=== PATIENT | female | born 1940 | race Caucasian/White ===

== ENCOUNTER 2017-07-15 14:46 | Inpatient (IN) | payer MEDICARE, OTHER ==
[~2017-07-15] VITALS: Ht 162.6 cm; Wt 55.3 kg
[2017-07-15 15:50] LABS: BASOPHIL # 0.1 10^3/ul (0.0-0.1); BASOPHILS % 0.5 % (0.0-2.0); EOSINOPHILS # 0.4 10^3/ul (0.0-0.5); EOSINOPHILS % 3.9 % (0.0-7.0); HEMATOCRIT 25.3 % (37.0-47.0); HEMOGLOBIN 8.2 g/dl (12.0-16.0); LYMPHOCYTES # 1.5 10^3/ul (0.8-2.9); LYMPHOCYTES % 16.1 % (15.0-51.0); MEAN CORPUSCULAR HEMOGLOBIN 30.8 pg (29.0-33.0); MEAN CORPUSCULAR HGB CONC 32.4 g/dl (32.0-37.0); MEAN CORPUSCULAR VOLUME 95.1 fl (82.0-101.0); MEAN PLATELET VOLUME 9.1 fl (7.4-10.4); MONOCYTE # 0.7 10^3/ul (0.3-0.9); MONOCYTES % 7.1 % (0.0-11.0); NEUTROPHILS % 71.7 % (39.0-77.0); PLATELET COUNT 524 10^3/UL (140-415); RED BLOOD COUNT 2.66 10^6/ul (4.20-5.40); RED CELL DISTRIBUTION WIDTH 18.1 % (11.5-14.5); WHITE BLOOD COUNT 9.2 10^3/ul (4.8-10.8)
[2017-07-15 16:12] LABS: CREATININE 0.58 mg/dl (0.44-1.00); POTASSIUM 5.1 mmol/L (3.5-5.1)
--- NOTE | 2017-07-15 16:25 | RADRPT ---
PROCEDURE: Chest xray. CLINICAL INDICATION: Decreased breath sounds on the left. TECHNIQUE: Upright PA and lateral views of the chest were obtained. COMPARISON: None. FINDINGS: There is a moderate left pleural effusion with associated left lower lung zone airspace disease. The right lung is clear. Pulmonary vascularity is within normal limits. The cardiac silhouette is parti ally obscured by the left pleural effusion/air space disease but appears grossly unremarkable. No pn eumothorax is identified. There are atherosclerotic calcifications in the aorta. There are degenerat cathy changes in the spine and shoulders. The soft tissues are unremarkable. IMPRESSION: Moderate left pleural effusion with left lower lung zone airspace disease. RPTAT:PP .Patty Goode MD, MD Date Time Electronically viewed and signed by .Patty Goode MD, MD on 07/15/2017 16:25 .K/
--- NOTE | 2017-07-15 17:22 | ERA ---
ER Documentation Chief Complaint Date/Time DATE: 07/15/17 TIME: 17:13 Chief Complaint BROUGHT IN VIA PRIVATE AMBULANCE DUE TO LOW HEMOGLOBIN HPI This is a 77-year-old female with a past medical history of chronic anemia, asthma, recurrent UTI infections, a recent episode of pneumonia for which she required a prolonged hospitalization, left-sided pleural effusion that was drained during this recent admission, failure to thrive, deconditioning, malnutrition, requiring a rehab facility after discharge, concerns of endometrial carcinoma or possibly cervical cancer on a recent CT, previous left hip surgery, diverticulosis, bladder outlet obstruction, who is presenting with continued fatigue and lethargy. She had blood work drawn this morning and reportedly had a hemoglobin that was between 7 and 8. She was sent to the emergency department with concerns of worsening anemia. The patient was told that she was going to come to the emergency department, she actually perked up. At this time, the patient's daughter says that she seems to be at her baseline. The patient has no complaints. She does not feel sick. She denies any fever or chills. She has no nausea. She does not feel any more fatigued than is typical for her. She denies chest pain or trouble breathing. She denies abdominal pain. The patient does endorse intermittent episodes of diarrhea. According to a recent nursing report, there may have been blood in her stool recently as well. The patient denies any acute focal deficits. She denies any weakness or numbness or tingling to the face or extremities. ROS All systems reviewed and are negative except as per history of present illness. Medications Home Meds No Active Prescriptions or Reported Meds Allergies Allergies: Coded Allergies: No Known Allergy (Verified , 07/15/17) PMhx/Soc History of Surgery: Yes (ORIF L HIP) Anesthesia Reaction: No Hx Neurological Disorder: Yes (LEFT SIDE WEAKNESS DUE TO SX) Hx Respiratory Disorders: Yes (ASTHMA) Hx Psychiatric Problems: No Hx Miscellaneous Medical Probl: Yes (ANEMIA, ASTHMA) Hx Alcohol Use: No Hx Substance Use: No Hx Tobacco Use: No Smoking Status: Never smoker Physical Exam Vitals Vital Signs Date Time Temp Pulse Resp B/P Pulse Ox O2 Delivery O2 Flow Rate FiO2 07/15/17 20:32 97.9 91 20 105/51 98 Nasal Cannula 3.0 07/15/17 18:12 98.6 87 20 109/56 100 Room Air 3.0 Nasal Cannula 07/15/17 17:25 92 20 122/68 100 Room Air 3.0 Nasal Cannula 07/15/17 14:48 98.5 86 18 107/57 100 Physical Exam Const: NAD, Well developed, Cachectic Head: Atraumatic Eyes: Normal Conjunctiva ENT: Normal External Ears, Nose. Dry mucous membranes Neck: Full range of motion. ~ No meningismus. Resp: decreased breath sounds on the left Cardio: Regular rate and rhythm, no murmurs Abd: Soft, non tender, non distended. Normal bowel sounds. G tube in place, no signs of infection, erythema, no edema, no induration, no purulence Skin: No petechiae or rashes Back: No midline or flank tenderness Ext: No cyanosis, or edema Neur: Awake and alert, normal strength, normal sensation, CN intact Psych: Normal Mood and Affect Result Diagram: 07/15/17 1530 07/15/17 1530 Results 24 hrs Laboratory Tests Test 07/15/17 15:30 07/15/17 16:50 White Blood Count 9.210^3/ul Red Blood Count 2.6610^6/ul Hemoglobin 8.2g/dl Hematocrit 25.3% Mean Corpuscular Volume 95.1fl Mean Corpuscular Hemoglobin 30.8pg Mean Corpuscular Hemoglobin Concent 32.4g/dl Red Cell Distribution Width 18.1% Platelet Count 53158^3/UL Mean Platelet Volume 9.1fl Neutrophils % 71.7% Lymphocytes % 16.1% Monocytes % 7.1% Eosinophils % 3.9% Basophils % 0.5% Nucleated Red Blood Cells % 0.0/100WBC Neutrophils # (Manual) 6.610^3/ul Lymphocytes # 1.510^3/ul Monocytes # 0.710^3/ul Eosinophils # 0.410^3/ul Basophils # 0.110^3/ul Nucleated Red Blood Cells # 0.010^3/ul Sodium Level 126mmol/L Potassium Level 5.1mmol/L Chloride Level 96mmol/L Carbon Dioxide Level 28mmol/L Anion Gap 7 Blood Urea Nitrogen 22mg/dl Creatinine 0.58mg/dl Glucose Level 89mg/dl Calcium Level 8.0mg/dl Stool Occult Blood NEGATIVE Current Medications Medications (Trade) Dose Ordered Sig/Walt Route PRN Reason Start Time Stop Time Status Last Admin Dose Admin Ondansetron HCl (Zofran Inj) 4 mg BRIDGE ORDER PRN IV NAUSEA AND/OR VOMITING 07/15/17 17:30 07/16/17 17:29 Acetaminophen 650 mg 650 mg ER BRIDGE PRN PO MILD PAIN/FEVER 07/15/17 17:30 07/16/17 17:29 Sodium Chloride (NS) 250 ml @ 0 mls/hr Q0M ONCE IV 07/15/17 17:25 07/15/17 17:27 DC 07/15/17 17:25 IV Flush (NS 3 ml) 3 ml PER PROTOCOL IV 07/15/17 21:30 UNV Ondansetron HCl (Zofran Inj) 4 mg Q6H PRN IV NAUSEA AND/OR VOMITING 07/15/17 21:30 UNV Acetaminophen (Tylenol Tab) 650 mg Q6H PRN PO PAIN LEVEL 1-3 OR FEVER 07/15/17 21:30 UNV Pantoprazole (Protonix Tab) 40 mg DAILY@06 PO 07/16/17 06:00 UNV Amiodarone HCl (Cordarone) 200 mg BID PO 07/16/17 09:00 UNV Apixaban (Eliquis) 5 mg BID ONCE PO 07/16/17 09:00 07/16/17 09:01 UNV Metoprolol Tartrate (Lopressor) 12.5 mg ONCE ONCE PO 07/15/17 21:30 07/15/17 21:31 UNV Multivitamins (Multivitamin) 30 ml DAILY GTB 07/16/17 09:00 UNV Pantoprazole (Protonix Tab) 40 mg DAILY ONCE PO 07/16/17 09:00 07/16/17 09:01 UNV Mirtazapine (Remeron) 15 mg QHS PO 07/16/17 21:00 UNV Ascorbic Acid (Vitamin C) 500 mg DAILY PO 07/16/17 09:00 UNV Procedures/MDM The patient's presenting with concerns of fatigue and anemia. The patient has had issues with failure to thrive in the past. She has been found to have a risk of cancer, which could be contributing to her symptoms. There is also a reported concern of a GI bleed. These will be assessed further. Patient's blood work was obtained and reviewed. The patient is anemic, but her hemoglobin is 8.2. Is not between 7 and 8 as previously described. The patient has no leukocytosis or left shift. I do not suspect a systemic infection. The patient's BMP demonstrates hyponatremia, which is frequent for her. She also has an elevated BUN, which is likely associated with dehydration. EKG Read by me Rate/Rhythm: Regular rate at 93 bpm, regular rhythm Intervals: Prolonged NE interval indicating a first-degree AV block. QRS duration and QTc are unremarkable [place]: Normal Nonspecific repolarization changes but no ST or T-wave changes concerning for acute coronary syndrome Impression: No evidence of acute ischemia or arrhythmia CXR FINDINGS: There is a moderate left pleural effusion with associated left lower lung zone airspace disease. The right lung is clear. Pulmonary vascularity is within normal limits. The cardiac silhouette is partially obscured by the left pleural effusion/air space disease but appears grossly unremarkable. No pneumothorax is identified. There are atherosclerotic calcifications in the aorta. There are degenerative changes in the spine and shoulders. The soft tissues are unremarkable. IMPRESSION: Moderate left pleural effusion with left lower lung zone airspace disease. Electronically viewed and signed by .Patty Goode MD, MD on 07/15/2017 16: 25 Rectal exam was completed that demonstrated yellow diarrhea but no junior blood. The occult test came back negative for bleeding. The patient's primary care physician was called to discuss the case. He was concerned about sending the patient back as her hemoglobin is perpetually read as between 7 and 8 at the facility. The patient's physician requested admission under his care and requested that 1 unit be given to the patient. The patient was consented for blood. She understands the risks and benefits. The patient was admitted to Dr. Guzman on a medical/surgical floor. The patient may require repeat thoracentesis given her recurrent left-sided pleural effusion. Departure Diagnosis: Primary Impression: Failure to thrive Qualified Code: R62.7 - Failure to thrive in adult Additional Impressions: Anemia Qualified Code: D64.9 - Anemia, unspecified type Recurrent left pleural effusion Hyponatremia Condition: CAROLYN mSith MD Jul 15, 2017 17:22
[2017-07-15] MEDS ORDERED: SOD CHLORIDE 0.9% 250 ML IV ONE (17:25)
[2017-07-15] MEDS ORDERED: ONDANSETRON 4 MG INJ IV PRN ×2 (17:30→21:30)
[2017-07-15] MEDS ORDERED: ACETAMINOPHEN 325 MG TAB PO PRN ×2 (17:30→21:30)
[2017-07-15 20:32] VITALS: PULSE 91; TEMP 97.9
[2017-07-15] MEDS ORDERED: NACL 0.9% 3 ML SYG IV SCH (21:30)
[2017-07-15] MEDS ORDERED: METOPROLOL 25 MG TAB PO ONE (21:30)
[2017-07-15 21:45] VITALS: BP 101/54; RESP 18
[2017-07-15 22:00] VITALS: Ht 162.6 cm; Wt 55.3 kg
--- NOTE | 2017-07-15 23:30 | HP ---
DATE OF ADMISSION: 07/15/2017 REASON FOR ADMISSION: Symptomatic anemia, encephalopathy. HISTORY OF PRESENT ILLNESS: Patient is a 77-year-old, very sick female with history of recent weight loss, cachexia, malnutrition, dysphoria, pelvic mass around the uterus and bladder, anemia, recently admitted at [facility] secondary to sepsis, was found to have urinary tract infection, pneumonia, left pleural effusion, status post thoracentesis, status post EGD and G-tube placement secondary to severe protein malnutrition. Patient was transferred to the residential facility at [facility] for further care. Patient is FULL CODE. Patient refused some workup at [facility], which included a colonoscopy. Patient was in usual state of health up until today, when she was noted to be more encephalopathic and weak. Labs revealed hemoglobin of 7.6. We did start her already on Epogen, but because of her change in mentation, it was decided to send her to [facility]. In the ER, patient's hemoglobin already improved to 8.2, but we decided to admit the patient for further care for a blood transfusion. Also, she was positive for fecal occult blood on 07/14/2017 and has continued with possible GI bleed. It was decided to admit the patient for further care. In the ER, patient evaluated. Chest x-ray revealed left pleural effusion, moderate, in moderate amount, and she received 1 unit of PRBC. Patient admitted to the floor. Patient otherwise has no specific complaints. Overall, very weak and debilitated, bedridden and has not walked for now a couple of months. SOCIAL HISTORY: Tobacco: None. Social alcohol in the past. IV drug abuse: None. 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 SURGICAL HISTORY: Includes appendectomy, left hip surgery, G- tube placement. ALLERGIES: NO KNOWN DRUG ALLERGIES. FAMILY HISTORY: Mother at age 86 from complications of hip surgery. Father from liver disease. He was alcoholic. within the patient. PAST MEDICAL HISTORY: Also includes diabetes mellitus, AFib, diabetes mellitus, controlled. PHYSICAL EXAMINATION: VITAL SIGNS: Pulse 91, respirations 20, blood pressure 105/51, temperature 98.3. GENERAL: Patient is in no acute distress. She is frail, cachectic, temporal wasting, pale, decreased dentition. CARDIOVASCULAR: S1, S2. LUNGS: Decrease at the left. ABDOMEN: Soft. G-tube in place. EXTREMITIES: Trace edema, lower extremities. Patient moving all extremities, but overall very weak. LABORATORY: White count is 9.2, hemoglobin 8.2, hematocrit 25, platelet count 524, neutrophils 72 percent, lymphocytes 16 percent. Chemistry: Sodium is low, 126, potassium 5.1, chloride 96, bicarb 28, BUN 22, creatinine 0.58, glucose of 89. Stool occult blood here is negative. Chest x-ray shows moderate left pleural effusion, with left lower lung zone airspace disease. Patient's EKG shows sinus rhythm with first-degree AV block, nonspecific ST abnormalities. ASSESSMENT AND PLAN: This is an unfortunate 77-year-old, female with history of cachexia, malnutrition, left pleural effusion, anemia, asthma, and pelvic mass, presented with progressive decline, is status post treatment for sepsis, including urinary tract infection and pneumonia, now presented with worsening anemia and possible gastrointestinal bleed. 1. Respiratory. Noted left pleural effusion. May benefit from another thoracentesis. Will discuss with family the benefits versus risks. If patient is not very symptomatic, we will hold on any further procedures. O2 supplements and breathing treatment will be provided. 2. Cardiovascular. Patient with recent atrial fibrillation, now back to sinus. Has been on amiodarone and low-dose beta clyde as blood pressure can tolerate. Continue Eliquis. If there is active bleeding will hold blood thinners. 3. Anemia, status post prolonged hospitalization, likely partly anemia of chronic disease and possibly gastrointestinal bleed. Patient will be transfused 1 unit of packed red blood cells. Follow up hemoglobin and hematocrit. 4. Malnutrition. Continue G-tube feeding. Will keep her n.p.o. by mouth, as patient is high risk of aspiration. 5. Renal. Monitor electrolytes. 6. Pelvic mass. When more stable, we can pursue it further, either with a PET CT or just surgical resection, as the Gynecology doctor, recommended hysterectomy. 7. Patient will be placed on air mattress bed, vitamins. Monitor closely. Case discussed with multiple daughters at bedside and over the phone. DISPOSITION: Hopefully, back to the residential facility. Dictated By: Dimas Guzman MD /parvez/erin /Document#: [id number]
[2017-07-16 02:04] VITALS: BP 123/61; RESP 18
[2017-07-16] MEDS: LANSOPRAZOLE 30 MG CAP GTB SCH (05:44)
[2017-07-16 06:10] LABS: BASOPHIL # 0.1 10^3/ul (0.0-0.1); BASOPHILS % 0.8 % (0.0-2.0); EOSINOPHILS # 0.4 10^3/ul (0.0-0.5); EOSINOPHILS % 3.8 % (0.0-7.0); HEMATOCRIT 26.4 % (37.0-47.0); HEMOGLOBIN 8.5 g/dl (12.0-16.0); LYMPHOCYTES # 1.6 10^3/ul (0.8-2.9); LYMPHOCYTES % 16.1 % (15.0-51.0); MEAN CORPUSCULAR HEMOGLOBIN 29.4 pg (29.0-33.0); MEAN CORPUSCULAR HGB CONC 32.2 g/dl (32.0-37.0); MEAN CORPUSCULAR VOLUME 91.3 fl (82.0-101.0); MEAN PLATELET VOLUME 9.4 fl (7.4-10.4); MONOCYTE # 0.8 10^3/ul (0.3-0.9); NEUTROPHILS % 70.6 % (39.0-77.0); PLATELET COUNT 510 10^3/UL (140-415); RED BLOOD COUNT 2.89 10^6/ul (4.20-5.40); RED CELL DISTRIBUTION WIDTH 19.2 % (11.5-14.5)
[2017-07-16 06:34] LABS: ALBUMIN 2.1 g/dl (3.3-4.9); ALBUMIN/GLOBULIN RATIO 0.58; BILIRUBIN,INDIRECT 0.1 mg/dl (0-1.1); BILIRUBIN,TOTAL 0.1 mg/dl (0.2-1.3); CALCIUM 7.9 mg/dl (8.4-10.2); CREATININE 0.55 mg/dl (0.44-1.00); PHOSPHORUS 3.5 mg/dl (2.5-4.9); POTASSIUM 4.9 mmol/L (3.5-5.1); TOTAL PROTEIN 5.7 g/dl (6.1-8.1)
[2017-07-16 06:45] LABS: IRON 22 ug/dl (35-150)
[2017-07-16 06:54] LABS: TOTAL IRON BINDING CAPACITY 162 ug/dl (241-421)
[2017-07-16 07:47] VITALS: BP 105/57; RESP 16
[2017-07-16] MEDS: ACETAMINOPHEN 650MG/20.3ML CUP GTB PRN ×2 (08:00→21:07)
[2017-07-16] MEDS ORDERED: PANTOPRAZOLE (EC) 40 MG TAB PO ONE (09:00)
[2017-07-16] MEDS: MULTIVITAMINS 30 ML CUP GTB SCH (09:41)
[2017-07-16] MEDS: ASCORBIC ACID 500 MG TAB GTB SCH (09:42)
[2017-07-16] MEDS: APIXABAN 5 MG TABLET GTB SCH ×3 (09:42→21:01)
[2017-07-16] MEDS: AMIODARONE 200 MG TAB GTB SCH ×3 (09:42→21:01)
[2017-07-16 14:00] VITALS: BP 114/60; RESP 18
--- NOTE | 2017-07-16 15:51 | CONS ---
Date/Time of Note Date/Time of Note DATE: 07/16/17 TIME: 15:47 Assessment/Plan Assessment/Plan Additional Assessment/Plan 1. Anemia with a positive stool guaiac 2. Malnutrition status post PEG 3. Severe hypoalbuminemia 4. Atrial fibrillation 5. Diabetes mellitus 6. Bedridden. 7. Pleural effusion. Plan Workup for anemia Stool for occult blood Colonoscopy if patient is agreeable. Continue G-tube feeding Dietary consultation to improve her albumin level. Consultation Date/Type/Reason Admit Date/Time Jul 15, 2017 at 17:25 Reason for Consultation Anemia and positive stool guaiac Hx of Present Illness 77-year-old female with a history of diabetes mellitus atrial fibrillation admitted to the hospital for change in mental status. Patient also was found to be anemic and her hemoglobin was 7.5 at [facility] after treatment with Neupogen it came up to 8. Gross GI bleeding no abdominal pain no nausea no vomiting. Patient is basically bedridden. No chest pain no shortness of breath. He received 1 unit of packed cell RBC. Chest x-ray showed pleural effusion. She was malnourished and had a prolonged hospital course few weeks ago she stayed at the [facility] for almost 1 month requiring EGD and finally G-tube placement for nutrition. Past Surgical History Past Surgical Hx: appendectomy Social History Alcohol Use: none Smoking Status: Never smoker Drug Use: none Exam/Review of Systems Vital Signs Vitals Vital Signs Date Time Temp Pulse Resp B/P Pulse Ox O2 Delivery O2 Flow Rate FiO2 07/16/17 14:00 97.2 82 18 114/60 99 07/16/17 08:00 Nasal Cannula 3.0 Intake and Output 07/15/17 07/15/17 07/16/17 14:59 22:59 06:59 Intake Total 750 ml Balance 750 ml Exam Constitutional: alert, oriented Psych: no complaints Head: atraumatic, normocephalic Neck: non-tender, supple Respiratory: clear to auscultation, normal air movement Cardiovascular: nl pulses, regular rate and rhythm Gastrointestinal: nl liver, spleen, non-tender, other (There is a G-tube), soft Musculoskeletal: nl extremities to inspection, nl gait and stance Extremities: normal pulses Neurological: INWEAVER II-XII intact, nl mental status, nl speech, nl strength Skin: nl turgor, No rash or lesions Results Result Diagram: 07/16/17 0514 07/16/17 0514 Results 24 hrs Laboratory Tests Test 07/15/17 16:50 07/16/17 05:14 07/16/17 05:27 Stool Occult Blood NEGATIVE White Blood Count 10.0 Red Blood Count 2.89 L Hemoglobin 8.5 L Hematocrit 26.4 L Mean Corpuscular Volume 91.3 Mean Corpuscular Hemoglobin 29.4 Mean Corpuscular Hemoglobin Concent 32.2 Red Cell Distribution Width 19.2 H Platelet Count 510 H Mean Platelet Volume 9.4 Neutrophils % 70.6 Lymphocytes % 16.1 Monocytes % 8.0 Eosinophils % 3.8 Basophils % 0.8 Nucleated Red Blood Cells % 0.0 Neutrophils # (Manual) 7.0 Lymphocytes # 1.6 Monocytes # 0.8 Eosinophils # 0.4 Basophils # 0.1 Nucleated Red Blood Cells # 0.0 Sodium Level 128 L Potassium Level 4.9 Chloride Level 99 Carbon Dioxide Level 28 Anion Gap 6 L Blood Urea Nitrogen 22 H Creatinine 0.55 Glucose Level 105 Calcium Level 7.9 L Phosphorus Level 3.5 Magnesium Level 2.0 Iron Level 22 L Total Iron Binding Capacity 162 L Percent Iron Saturation 14 L Total Bilirubin 0.1 L Direct Bilirubin 0.00 Indirect Bilirubin 0.1 Aspartate Amino Transf (AST/SGOT) 26 Alanine Aminotransferase (ALT/SGPT) 34 Alkaline Phosphatase 323 H Total Protein 5.7 L Albumin 2.1 L Globulin 3.60 H Albumin/Globulin Ratio 0.58 Lab Scanned Report BLOOD TRANSFUSION Medications Medications Current Medications Ondansetron HCl (Zofran Inj) 4 mg Q6H PRN IV NAUSEA AND/OR VOMITING; Start 07/15 at 21:30 Lansoprazole (Prevacid) 30 mg DAILY@06 GTB ; Start 07/16/17 at 06:00 Amiodarone HCl (Cordarone) 200 mg BID GTB Last administered on 07/16/17 09:42; Admin Dose 200 MG; Start 07/16/17 at 09:00 Apixaban (Eliquis) 5 mg BID GTB Last administered on 07/16/17 09:42; Admin Dose 5 MG; Start 07/16/17 at 09:00 Multivitamins (Multivitamin) 30 ml DAILY GTB Last administered on 07/16/17 09: 41; Admin Dose 30 ML; Start 07/16/17 at 09:00 Mirtazapine (Remeron) 15 mg QHS GTB ; Start 07/16/17 at 21:00 Ascorbic Acid (Vitamin C) 500 mg DAILY GTB Last administered on 07/16/17 09:42 ; Admin Dose 500 MG; Start 07/16/17 at 09:00 Acetaminophen (Tylenol Liquid) 650 mg Q6H PRN GTB PAIN LEVEL 1-3 OR FEVER Last administered on 07/16/17 08:00; Admin Dose 650 MG; Start 07/15/17 at 22:14 MARYANN BARCENAS MD Jul 16, 2017 15:51
--- NOTE | 2017-07-16 17:39 | PN ---
DATE: 07/16/2017 SUBJECTIVE: The patient looks much better, more alert, but H and H did not correct appropriately, from 8.2 to 8.7. I did consult GI, as the patient, unfortunately, refused a colonoscopy. Serial occult blood was negative, but at the longterm it was positive. The case was discussed in detailed with Dr. Nunn, the GI specialist. I also spoke with the family. I told them that I may have to discontinue the patient's Eliquis, if H and H does not continue to correct. I am concerned that maybe she is bleeding. PHYSICAL EXAMINATION: VITALS: Temperature 98, pulse 91, respirations 16, blood pressure 105/57, saturation 99% on 2 liters. GENERAL: The patient is frail, pale, temporal wasting. CARDIOVASCULAR: S1, S2. Regular rate and rhythm. LUNGS: Clear. ABDOMEN: Soft. G-tube in place. EXTREMITIES: No clubbing, cyanosis, or edema. LABS: White count is 8.7, hematocrit 26, platelet count 510. Neutrophils 71%, eosinophils 16%. Chemistry: Sodium 128, potassium 4.9, chloride 99, bicarb 28. BUN 22, creatinine 0.55, glucose 105. Albumin 22. 162, so both iron deficiency anemia of chronic disease. Alk phos high 323, total protein 5.7, albumin 2.1. Serial occult blood here was negative. The patient's chest x-ray did show left moderate pleural effusion. MEDICATIONS: 1. Remeron 15 mg nightly. 2. Amiodarone 200 mg b.i.d. 3. Eliquis 5 mg b.i.d. 4. Multivitamin. 5. Tylenol p.r.n. 6. Zofran p.r.n. ASSESSMENT AND PLAN: This is an unfortunate, 77-year-old female with a history of cachexia, malnutrition, left pleural effusion, anemia, asthma, and pelvic mass who presented with progressive decline status post recent treatment for urinary tract infection and pneumonia and now presented with worsening anemia and mild encephalopathy. 1. Respiratory. Stable clinically. So, I will not pursue another thoracentesis of the left lung. Will just monitor closely. O2 is supposed to be provided. Breathing treatment as needed. 2. Cardiovascular. The patient with recent atrial fibrillation. Remains on Eliquis. If hemoglobin and hematocrit does not correct, will discontinue Eliquis. In the meantime, continue amiodarone; continue low-dose beta blockers. 3. Anemia. Will transfuse 1 unit of packed red blood cells, another one was followed by intravenous Lasix. 4. Malnutrition. Tolerating G-tube feeding well. Albumin increased, and the patient clinically looks better. Speech therapy to evaluate to see if all her feeding can provided as well. 5. Renal. Monitor electrolytes. 6. Pelvic mass. Recommend either CT or if stable she needs surgical correction of the uterus and possibly both gynecological and urological team to work on the abnormalities in the pelvis. 7. The case is discussed with the family. 8. decubitus ulcer. Air mattress, vitamins, frequent turnings, medicare contact specialist consult appreciated. We will follow. Dictated By: Dimas Guzman MD /parvez/mariam /Document#: [id number] TGD
[2017-07-16 20:55] VITALS: BP 138/68; RESP 19
[2017-07-16] MEDS ORDERED: MIRTAZAPINE 15 MG TAB GTB SCH (21:00)
[2017-07-17 02:00] VITALS: BP 131/69; RESP 19
[2017-07-17] MEDS: LANSOPRAZOLE 30 MG CAP GTB SCH (05:21)
[2017-07-17] MEDS: ACETAMINOPHEN 650MG/20.3ML CUP GTB PRN (05:38)
[2017-07-17 05:53] LABS: BASOPHIL # 0.1 10^3/ul (0.0-0.1); BASOPHILS % 0.9 % (0.0-2.0); EOSINOPHILS # 0.4 10^3/ul (0.0-0.5); EOSINOPHILS % 4.4 % (0.0-7.0); HEMATOCRIT 27.5 % (37.0-47.0); HEMOGLOBIN 9.2 g/dl (12.0-16.0); LYMPHOCYTES # 1.8 10^3/ul (0.8-2.9); LYMPHOCYTES % 18.6 % (15.0-51.0); MEAN CORPUSCULAR HEMOGLOBIN 30.9 pg (29.0-33.0); MEAN CORPUSCULAR HGB CONC 33.5 g/dl (32.0-37.0); MEAN CORPUSCULAR VOLUME 92.3 fl (82.0-101.0); MEAN PLATELET VOLUME 9.2 fl (7.4-10.4); MONOCYTE # 0.8 10^3/ul (0.3-0.9); MONOCYTES % 8.2 % (0.0-11.0); NEUTROPHILS % 67.3 % (39.0-77.0); PLATELET COUNT 554 10^3/UL (140-415); RED BLOOD COUNT 2.98 10^6/ul (4.20-5.40); RED CELL DISTRIBUTION WIDTH 19.6 % (11.5-14.5); WHITE BLOOD COUNT 9.6 10^3/ul (4.8-10.8)
[2017-07-17 06:17] LABS: PHOSPHORUS 3.6 mg/dl (2.5-4.9)
[2017-07-17 06:24] LABS: PREALBUMIN 9.6 mg/dl (17.6-36.0)
[2017-07-17 06:30] LABS: CALCIUM 7.9 mg/dl (8.4-10.2); CREATININE 0.57 mg/dl (0.44-1.00); POTASSIUM 4.8 mmol/L (3.5-5.1)
--- NOTE | 2017-07-17 07:59 | PQ ---
Date/Time of Note Date/Time of Note DATE: 07/17/17 TIME: 07:30 Physician Query Documentation Clarification Dear Dr. Guzman, A review of the medical record found a need for documentation clarification. senior vice president notes: Left Ischium pressure ulcer stage III (labeled by unit RN as sacrococcyx pressure ulcer stage II). Please clarify if you concur with the above assessment. To facilitate accurate and complete coding, please jerel ( x ) the suspected diagnosis that apply: ( x ) Yes, Left Ischium pressure ulcer stage 3 POA ( ) No ( ) Others Please provide your response by clicking edit document, making your choice ( x ), click ok/save and finally click sign. You may also document your response on your progress notes. Thank you for your time. With appreciation, Romain Mahajan, RN, BSN, CCS, CCDS Clinical Bottom Scrubber Health Information Management, CDI and Coding Services [phone] Room # 1525 - [address]~ [id number] [place] Jul 17, 2017 07:58 CEE GUZMAN MD Jul 17, 2017 20:53
--- NOTE | 2017-07-17 08:10 | PQ ---
Date/Time of Note Date/Time of Note DATE: 07/17/17 TIME: 08:[address] Guzman, A review of the medical record found a need for documentation clarification. 77-year-old female ... who presented with progressive decline status post recent treatment for urinary tract infection and pneumonia and now presented with worsening anemia and ---------------------> mild encephalopathy.<--------------------- progress note 07/16 Please clarify/specify the type of encephalopathy y (if known) . To facilitate accurate and complete coding, please jerel ( x ) the suspected diagnosis that apply: ( ) Metabolic Encephalopathy ( ) Toxic Encephalopathy ( ) Other Encephalopathy ( ) Please provide your response by clicking edit document, making your choice ( x ), click ok/save and finally click sign. You may also document your response on your progress notes. Thank you for your time. With appreciation, Roamin Mahajan, RN, BSN, CCS, CCDS Clinical Prop Making Supervisor Health Information Management, CDI and Coding Services [phone] Room # 1525 - [address]~ [address] [place]HA[place] Jul 17, 2017 08:10 CEE GUZMAN MD Jul 17, 2017 20:54
[2017-07-17 08:11] VITALS: BP 123/58; RESP 18
--- NOTE | 2017-07-17 08:38 | PDOCDIS ---
Discharge Instructions CONDITION Patient Condition: Guarded ACTIVITY: Activity Restrictions: Slowly Increase Activity FOLLOW UP/APPOINTMENTS Follow-up Plan see reconciliation CEE SAWANT MD Jul 17, 2017 08:38
[2017-07-17] MEDS ORDERED: FOLIC ACID 1 MG TAB PO SCH (09:00)
[2017-07-17] MEDS ORDERED: APIXABAN 5 MG TABLET GTB SCH (09:00)
[2017-07-17] MEDS ORDERED: METOPROLOL 25 MG TAB GTB SCH (09:00)
[2017-07-17] MEDS: MULTIVITAMINS 30 ML CUP GTB SCH (09:08)
[2017-07-17] MEDS: ASCORBIC ACID 500 MG TAB GTB SCH (09:08)
[2017-07-17] MEDS: AMIODARONE 200 MG TAB GTB SCH (09:09)
--- NOTE | 2017-07-17 09:41 | DS ---
DATE OF ADMISSION: 07/15/2017 DATE OF DISCHARGE: 07/17/2017 REASON FOR ADMISSION: Symptomatic anemia, encephalopathy. HOSPITAL COURSE: Patient is an unfortunate 77-year-old, very sick, female with recent history of recent weight loss, cachexia and malnutrition, who was found to have a pelvic mass on the uterus and bladder, anemia, recent hospitalization at [facility] secondary to UTI, pneumonia. She was stabilized. Also had a thoracentesis of the left lung. The patient was transferred to [facility]. On the day of admission, she was noted to be more lethargic. Hemoglobin was low at 7.6. We did start her on Epogen, but because of her mentation, she was sent to [facility]. It was decided to admit the patient for further care and she received 1 unit of PRBC. I ordered for another unit yesterday, as the hemoglobin went from 8.2 to 8.5, but it was not given, but hemoglobin today is 9.2, so that is much better. Stool occult blood here negative, but at the shelter it was positive. Basically, the patient would need a colonoscopy. I consulted with Dr. Nunn. Patient refused. The patient overall remained stable, is tolerating G- tube feeding well. She can be discharged back to the [facility] facility with followup. Hopefully, she can gain strength and improve her nutritional support, so we can further evaluate for the pelvic pathology, consider maybe PET/CT, etc. The patient will be discharged. Discharge vital signs are stable. Temperature 97.9, pulse 86, respiration is 18, blood pressure 123/58, saturation is 99 percent on supplemental oxygen. She does have a moderate left pleural effusion, but she is asymptomatic, so I will not do a thoracentesis for now. I prefer her to get stronger with nutrition and I will continue to monitor closely. DISCHARGE MEDICATIONS: The patient was discharged with: 1. Tylenol 650 q.6 p.r.n. 2. Amiodarone 200 mg b.i.d. 3. Eliquis. I reduced the dose to 2.5 b.i.d. as there is possible risk of acute bleeding from 5 b.i.d. and she had paroxysmal atrial fibrillation. 4. Vitamin C 500 mg daily. 5. Folic acid 1 mg daily. 6. Prevacid 20 mg daily. 7. Lopressor 12.5, hold for systolic blood pressure of less than 115, heart rates less than 60. 8. Remeron 150 mg at bedtime. 9. Multivitamin 1 tab daily. 10. Zofran p.o. G-tube q.4 p.r.n. 11. Epogen 10,000 units subcu q. Friday, Friday, and Friday. CBC, CMP on 07/21/2017. FINAL DIAGNOSES: 1. Symptomatic anemia. 2. Rule out gastrointestinal bleed. 3. Vbbhtkmy-ze-rwrkaf protein malnutrition. 4. Anemia. 5. Mild hyponatremia, improved from 126 to 131 with blood products. 6. Elevated alkaline phosphatase. 7. Pelvic mass. Concerning for malignancy, most likely uterine ideology. 8. Paroxysmal atrial fibrillation. 9. Debilitated state. 10. Decubitus wound. See nursing documentation. Air mattress bed is recommend, frequent turning and wound care. 11. Encephalopathy related to above issues. Case discussed with family on a routine basis. Continue G-tube feeding as directed due to dysphagia. Dictated By: Dimas Guzman MD /parvez/ezra /Document#: [id number]
--- NOTE | 2017-07-17 11:24 | CONS ---
Date/Time of Note Date/Time of Note DATE: 07/17/17 TIME: 11:23 Assessment/Plan Assessment/Plan Chief Complaint/Hosp Course 77-year-old female with a history of diabetes mellitus atrial fibrillation admitted to the hospital for change in mental status. Patient also was found to be anemic and her hemoglobin was 7.5 at assisted after treatment with Neupogen it came up to 8. Gross GI bleeding no abdominal pain no nausea no vomiting. Patient is basically bedridden. No chest pain no shortness of breath. He received 1 unit of packed cell RBC. Chest x-ray showed pleural effusion. She was malnourished and had a prolonged hospital course few weeks ago she stayed at the [facility] for almost 1 month requiring EGD and finally G-tube placement for nutrition. Problems: Additional Assessment/Plan Assessment/Plan Additional Assessment/Plan 1. Anemia with a positive stool guaiac 2. Malnutrition status post PEG 3. Severe hypoalbuminemia 4. Atrial fibrillation 5. Diabetes mellitus 6. Bedridden. 7. Pleural effusion. Plan Workup for anemia Stool for occult blood Colonoscopy if patient is agreeable. Continue G-tube feeding Dietary consultation to improve her albumin level. Patient refused colonoscopy Consultation Date/Type/Reason Admit Date/Time Jul 15, 2017 at 17:25 Initial Consult Date 24 HR Interval Summary Constitutional: improved, no complaints Exam/Review of Systems Vital Signs Vitals Vital Signs Date Time Temp Pulse Resp B/P Pulse Ox O2 Delivery O2 Flow Rate FiO2 07/17/17 08:11 97.9 86 18 123/58 99 07/16/17 08:00 Nasal Cannula 3.0 Intake and Output 07/16/17 07/16/17 07/17/17 15:00 23:00 07:00 Intake Total 700 ml Output Total 600 ml Balance 700 ml -600 ml Exam Constitutional: alert, oriented, well developed Psych: nl mood/affect, no complaints Head: atraumatic, normocephalic Eyes: EOMI, PERRL, nl conjunctiva, nl lids, nl sclera ENMT: nl external ears & nose, nl lips & teeth, nl nasal mucosa & septum Neck: non-tender, supple Respiratory: clear to auscultation, normal air movement Cardiovascular: nl pulses, regular rate and rhythm Gastrointestinal: nl liver, spleen, non-tender, soft Musculoskeletal: nl extremities to inspection, nl gait and stance Extremities: normal pulses Neurological: RECORDIST CHIEF II-XII intact, nl mental status, nl speech, nl strength Skin: nl turgor, No rash or lesions Lymph: nl lymph nodes Results Result Diagram: 07/17/1744007/17/17440 Results 24 hrs Laboratory Tests Test 07/17/17 04:41 White Blood Count 9.6 Red Blood Count 2.98 L Hemoglobin 9.2 L Hematocrit 27.5 L Mean Corpuscular Volume 92.3 Mean Corpuscular Hemoglobin 30.9 Mean Corpuscular Hemoglobin Concent 33.5 Red Cell Distribution Width 19.6 H Platelet Count 554 H Mean Platelet Volume 9.2 Neutrophils % 67.3 Lymphocytes % 18.6 Monocytes % 8.2 Eosinophils % 4.4 Basophils % 0.9 Nucleated Red Blood Cells % 0.0 Neutrophils # (Manual) 6.5 Lymphocytes # 1.8 Monocytes # 0.8 Eosinophils # 0.4 Basophils # 0.1 Nucleated Red Blood Cells # 0.0 Sodium Level 131 L Potassium Level 4.8 Chloride Level 102 Carbon Dioxide Level 26 Anion Gap 8 Blood Urea Nitrogen 22 H Creatinine 0.57 Glucose Level 99 Calcium Level 7.9 L Phosphorus Level 3.6 Magnesium Level 2.0 Prealbumin 9.6 L Medications Medications Current Medications Ondansetron HCl (Zofran Inj) 4 mg Q6H PRN IV NAUSEA AND/OR VOMITING; Start 07/15 at 21:30 Lansoprazole (Prevacid) 30 mg DAILY@06 GTB Last administered on 07/17/17 05:21 ; Admin Dose 30 MG; Start 07/16/17 at 06:00 Amiodarone HCl (Cordarone) 200 mg BID GTB Last administered on 07/17/17 09:09; Admin Dose 200 MG; Start 07/16/17 at 09:00 Multivitamins (Multivitamin) 30 ml DAILY GTB Last administered on 07/17/17 09: 08; Admin Dose 30 ML; Start 07/16/17 at 09:00 Mirtazapine (Remeron) 15 mg QHS GTB Last administered on 07/16/17 20:57; Admin Dose 15 MG; Start 07/16/17 at 21:00 Ascorbic Acid (Vitamin C) 500 mg DAILY GTB Last administered on 07/17/17 09:08 ; Admin Dose 500 MG; Start 07/16/17 at 09:00 Acetaminophen (Tylenol Liquid) 650 mg Q6H PRN GTB PAIN LEVEL 1-3 OR FEVER Last administered on 07/17/17 05:38; Admin Dose 650 MG; Start 07/15/17 at 22:14 Apixaban (Eliquis) 2.5 mg BID GTB Last administered on 07/17/17 09:09; Admin Dose 2.5 MG; Start 07/17/17 at 09:00 Metoprolol Tartrate (Lopressor) 12.5 mg BID GTB Last administered on 07/17/17 09:10; Admin Dose 12.5 MG; Start 07/17/17 at 09:00 Folic Acid (Folic Acid) 1 mg DAILY PO Last administered on 07/17/17 09:09; Admin Dose 1 MG; Start 07/17/17 at 09:00 MARYANN BARCENAS MD Jul 17, 2017 11:24
== END 2017-07-17 13:34 | DRG 811 ==
LOC: E/R 14:46 → PP2 17:25
PROVIDERS: ADMIT Internal Medicine; ATTEND Internal Medicine
PROC: 30233N1 Transfusion of Nonautologous Red Blood Cells into Peripheral Vein, Percutaneous Approach (ICD-10-PCS; principal; 2017-07-15)
DX: D64.9 Anemia, unspecified (principal); E43 Unspecified severe protein-calorie malnutrition; G93.49 Other encephalopathy; J90 Pleural effusion, not elsewhere classified; L89.153 Pressure ulcer of sacral region, stage 3; I48.0 Paroxysmal atrial fibrillation; K92.2 Gastrointestinal hemorrhage, unspecified; E87.1 Hypo-osmolality and hyponatremia; R74.8 Abnormal levels of other serum enzymes; N85.9 Noninflammatory disorder of uterus, unspecified; E11.9 Type 2 diabetes mellitus without complications; J45.909 Unspecified asthma, uncomplicated; Z68.20 Body mass index [BMI] 20.0-20.9, adult; Z93.1 Gastrostomy status; Z74.01 Bed confinement status; Z87.440 Personal history of urinary (tract) infections; Z87.01 Personal history of pneumonia (recurrent); Z79.01 Long term (current) use of anticoagulants
CPT/HCPCS: 36430; 71020; 80048; 80053; 82270; 83540; 83735; 84100; 84134; 85025; 86644; 86850; 86900; 86901; 86920; 87081; 93005; J7040; P9016

== ENCOUNTER → 2018-06-18 09:39 | Day surgery (SDC) | END | disposition home or self-care (01) ==